=== PATIENT | female | born 1965 | race Caucasian/White ===

== ENCOUNTER → 2024-06-30 | Outpatient (CLI) | payer BC, SELFPAY ==
[2024-06-30 11:06] LABS: Collection Type, Urine Clean Catch
[2024-06-30 11:35] LABS: Basophils # (Auto) 0.1 Thou/mm3 (0.0-0.2); Basophils % (Auto) 1 % (0-2.5); Eosinophils # (Auto) 0.1 Thou/mm3 (0.0-0.5); Eosinophils % (Auto) 2 % (0-10); Hematocrit 41.6 % (36.0-46.0); Hemoglobin 13.4 g/dL (12.0-16.0); Immature Granulocytes % (Auto) 0 % (0-0); Immature Granulocytes Auto 0.02 Thou/mm3 (0.00-0.00); Lymphocytes # (Auto) 3.5 Thou/mm3 (1.0-4.8); Lymphocytes % (Auto) 48 % (10-50); Mean Corpuscular HGB Conc 32.2 g/dl (31.0-37.0); Mean Corpuscular Hemoglobin 28.8 pg (25.0-35.0); Mean Corpuscular Volume 90 fL (80-100); Monocytes # (Auto) 0.6 Thou/mm3 (0.0-0.8); Monocytes % (Auto) 8 % (0-12); Neutrophils % (Auto) 41 % (37-80); Nucleated Red Blood Cell % 0 /100 WBC (0); Platelet Count 255 Thou/mm3 (140-440); RDW Standard Deviation 45.3 fL (36.4-46.3); Red Blood Count 4.65 Miln/mm3 (4.00-5.20); White Blood Count 7.3 Thou/mm3 (3.6-11.0)
[2024-06-30 11:42] LABS: Bilirubin,Urine Negative (Negative); Blood,Urine Negative (Negative); Clarity,Urine Clear (Clear/Hazy); Color,Urine Colorless (Lt Yel-Yel); Culture Indicated,Urine Not Indicated; Glucose, Urine Negative (Negative); Ketones,Urine Negative (Negative); Leukocyte Esterase,Urine Negative (Negative); Nitrite,Urine Negative (Negative); Protein,Urine Negative (Neg - Trace); RBC,Urine 1 /hpf (0-3); Squamous Epithelial Cell,Urine < 1 /hpf (0-5); Urobilinogen,Urine Negative mg/dL (0.0-1.0); WBC,Urine < 1 /hpf (0-5)
[2024-06-30 11:55] LABS: Creatinine MALB Rnd Ur 33 mg/dL (30-125); Microalbumin, Random Urine < 3 mg/L (0-300)
[2024-06-30 12:23] LABS: Alanine Aminotransferase 39 U/L (10-49); Albumin, Serum 4.7 gm/dL (3.4-4.8); Albumin/Globulin Ratio 2.2 (1.2-2.2); Alkaline Phosphatase 87 U/L (46-116); Anion Gap 9 (7-16); Aspartate Amino Transferase 32 U/L (0-34); BUN/Creatinine Ratio 19 Ratio (12-20); Bilirubin,Total 0.5 mg/dL (0.3-1.2); Blood Urea Nitrogen 13 mg/dL (9-23); Calcium 9.9 mg/dL (8.3-10.6); Calcium (Corrected) 9.9 mg/dL (8.5-10.1); Chloride 107 mMol/L (98-107); Creatinine (Component) 0.7 mg/dL (0.6-1.3); Globulin 2.1 gm/dL (2.3-3.5); Glucose 129 mg/dL (74-106); Osmolality,Calculated 290 (275-295); Potassium 4.4 mMol/L (3.4-5.1); Sodium 145 mMol/L (136-145); Thyroid Stimulating Hormone 1.03 uIU/mL (0.55-4.78); Total Protein 6.8 gm/dL (5.7-8.2); eGFR > 60 See Note
[2024-06-30 13:43] LABS: Cardiac Risk Estimate 3.2 RATIO (3.7-5.6); Cholesterol 137 mg/dL (132-200); HDL Cholesterol 43 mg/dL (40-60); LDL Cholesterol,Calculated 61 mg/dL (0-130); Triglycerides 165 mg/dL (30-150)
[2024-06-30 13:45] LABS: Glucose Estimated Average 174 mg/dL (80-131); Hemoglobin A1C 7.7 % Hgb (4.8-6.0)
[2024-06-30 14:03] LABS: Vitamin D 25 Hydroxy Total 57.5 ng/mL (7.3-40.2)
== END | disposition home or self-care (01) ==
LOC: COPL 10:29
PROVIDERS: PCP Family Medicine; Referring Provider Registered Nurse; Visit Provider Registered Nurse
DX: Z00.00 Encounter for general adult medical examination without abnormal findings (principal); E11.65 Type 2 diabetes mellitus with hyperglycemia; I10 Essential (primary) hypertension; E78.5 Hyperlipidemia, unspecified
CPT/HCPCS: 36415; 80053; 80061; 81001; 82043; 82306; 82570; 83036; 84443; 85025

== ENCOUNTER → 2024-09-22 | Outpatient (CLI) | payer BC, SELFPAY ==
[2024-09-22 11:16] LABS: Collection Type, Urine Clean Catch
[2024-09-22 11:44] LABS: Basophils # (Auto) 0.1 Thou/mm3 (0.0-0.2); Basophils % (Auto) 1 % (0-2.5); Immature Granulocytes % (Auto) 0 % (0-0); Immature Granulocytes Auto 0.03 Thou/mm3 (0.00-0.00); Nucleated Red Blood Cell % 0 /100 WBC (0); Red Blood Count 4.73 Miln/mm3 (4.00-5.20)
[2024-09-22 11:49] LABS: Eosinophils # (Auto) 0.1 Thou/mm3 (0.0-0.5); Eosinophils % (Auto) 1 % (0-10); Hematocrit 41.6 % (36.0-46.0); Hemoglobin 13.7 g/dL (12.0-16.0); Lymphocytes # (Auto) 3.2 Thou/mm3 (1.0-4.8); Lymphocytes % (Auto) 36 % (10-50); Mean Corpuscular HGB Conc 32.9 g/dl (31.0-37.0); Mean Corpuscular Volume 88 fL (80-100); Monocytes # (Auto) 0.7 Thou/mm3 (0.0-0.8); Monocytes % (Auto) 8 % (0-12); Neutrophils # (Auto) 4.7 Thou/mm3 (1.8-7.7); Neutrophils % (Auto) 53 % (37-80); Platelet Count 307 Thou/mm3 (140-440); White Blood Count 8.8 Thou/mm3 (3.6-11.0)
[2024-09-22 11:57] LABS: Bilirubin,Urine Negative (Negative); Blood,Urine Negative (Negative); Clarity,Urine Clear (Clear/Hazy); Color,Urine Lt-Yellow (Lt Yel-Yel); Culture Indicated,Urine Not Indicated; Glucose, Urine 1+ (Negative); Ketones,Urine Negative (Negative); Leukocyte Esterase,Urine Negative (Negative); Nitrite,Urine Negative (Negative); PH,Urine 5.5 (5.0-7.0); Protein,Urine Negative (Neg - Trace); RBC,Urine 3 /hpf (0-3); Specific Gravity,Urine 1.018 (1.001-1.035); Squamous Epithelial Cell,Urine 6 /hpf (0-5); Urobilinogen,Urine Negative mg/dL (0.0-1.0); WBC,Urine 2 /hpf (0-5)
[2024-09-22 12:00] LABS: Creatinine MALB Rnd Ur 56 mg/dL (30-125); Microalbumin Creat Ratio 13 mg/gCrea (<30); Microalbumin, Random Urine 7 mg/L (0-300)
[2024-09-22 12:00] LABS: Vitamin D 25 Hydroxy Total 49.8 ng/mL (7.3-40.2)
[2024-09-22 12:03] LABS: Glucose Estimated Average 212 mg/dL (80-131)
[2024-09-22 12:05] LABS: Alanine Aminotransferase 44 U/L (10-49); Albumin, Serum 4.5 gm/dL (3.4-4.8); Albumin/Globulin Ratio 1.8 (1.2-2.2); Alkaline Phosphatase 100 U/L (46-116); Anion Gap 9 (7-16); Aspartate Amino Transferase 37 U/L (0-34); BUN/Creatinine Ratio 21 Ratio (12-20); Bilirubin,Total 0.6 mg/dL (0.3-1.2); Blood Urea Nitrogen 17 mg/dL (9-23); Calcium 9.4 mg/dL (8.3-10.6); Calcium (Corrected) 9.4 mg/dL (8.5-10.1); Cardiac Risk Estimate 3.5 RATIO (3.7-5.6); Chloride 106 mMol/L (98-107); Cholesterol 170 mg/dL (132-200); Creatinine (Component) 0.8 mg/dL (0.6-1.3); Globulin 2.5 gm/dL (2.3-3.5); Glucose 175 mg/dL (74-106); HDL Cholesterol 48 mg/dL (40-60); LDL Cholesterol,Calculated 93 mg/dL (0-130); Osmolality,Calculated 288 (275-295); Potassium 4.2 mMol/L (3.4-5.1); Sodium 142 mMol/L (136-145); Thyroid Stimulating Hormone 1.69 uIU/mL (0.55-4.78); Triglycerides 145 mg/dL (30-150); eGFR > 60 See Note
== END | disposition home or self-care (01) ==
LOC: COPL 10:34
PROVIDERS: PCP Family Medicine; Referring Provider Registered Nurse; Visit Provider Registered Nurse
DX: E11.65 Type 2 diabetes mellitus with hyperglycemia (principal); R79.89 Other specified abnormal findings of blood chemistry
CPT/HCPCS: 36415; 80053; 80061; 81001; 82043; 82306; 82570; 83036; 84443; 85025

== ENCOUNTER → 2024-10-30 | Outpatient (CLI) | payer BC, SELFPAY ==
[2024-10-30 12:18] LABS: Albumin, Serum 4.3 gm/dL (3.4-4.8); Anion Gap 11 (7-16); BUN/Creatinine Ratio 17 Ratio (12-20); Blood Urea Nitrogen 12 mg/dL (9-23); Calcium 8.8 mg/dL (8.3-10.6); Calcium (Corrected) 8.8 mg/dL (8.5-10.1); Carbon Dioxide 29.4 mMol/L (20.0-31.0); Chloride 106 mMol/L (98-107); Creatinine (Component) 0.7 mg/dL (0.6-1.3); Glucose 135 mg/dL (74-106); Osmolality,Calculated 292 (275-295); Phosphorous 3.3 mg/dL (2.4-5.1); Potassium 3.6 mMol/L (3.4-5.1); Sodium 146 mMol/L (136-145); eGFR > 60 See Note
== END | disposition home or self-care (01) ==
LOC: COPL 10:42
PROVIDERS: PCP Family Medicine; Referring Provider Registered Nurse; Visit Provider Registered Nurse
DX: R22.2 Localized swelling, mass and lump, trunk (principal)
CPT/HCPCS: 36415; 80069

== ENCOUNTER → 2024-11-09 | Outpatient (CLI) | payer BC, SELFPAY ==
--- NOTE | 2024-11-09 13:15 | XR_ITS ---
Examination: MRI abdomen with intravenous contrast TECHNIQUE: Multiple MR abdomen images obtained post intravenous administration 19 cc gadolinium Date and time: November 09, 2024 1336 hours INDICATIONS: Palpable mass right side of the mid back 3 years FINDINGS: No focal enhancing liver or splenic lesion No pancreatic mass or extrahepatic biliary tract dilatation No renal mass lesion or hydronephrosis Aorta normal size No ascites Possible very subtle ill-defined enhancement at the palpable marker site but no discrete mass IMPRESSION: Recommend ultrasound soft tissue extremity palpable mass in the posterior right back follow-up
== END | disposition home or self-care (01) ==
LOC: SMRI 12:42
PROVIDERS: PCP Family Medicine; Referring Provider Registered Nurse; Visit Provider Registered Nurse
DX: R22.2 Localized swelling, mass and lump, trunk (principal)
CPT/HCPCS: 74182; A9579

== ENCOUNTER → 2025-01-05 | Outpatient (CLI) | payer BC, SELFPAY ==
[2025-01-05 12:01] LABS: Basophils # (Auto) 0.1 Thou/mm3 (0.0-0.2); Basophils % (Auto) 1 % (0-2.5); Eosinophils # (Auto) 0.2 Thou/mm3 (0.0-0.5); Eosinophils % (Auto) 4 % (0-10); Hematocrit 38.7 % (36.0-46.0); Hemoglobin 12.2 g/dL (12.0-16.0); Immature Granulocytes Auto 0.01 Thou/mm3 (0.00-0.00); Lymphocytes # (Auto) 2.6 Thou/mm3 (1.0-4.8); Lymphocytes % (Auto) 44 % (10-50); Mean Corpuscular HGB Conc 31.5 g/dl (31.0-37.0); Mean Corpuscular Hemoglobin 28.0 pg (25.0-35.0); Mean Corpuscular Volume 89 fL (80-100); Monocytes # (Auto) 0.5 Thou/mm3 (0.0-0.8); Monocytes % (Auto) 9 % (0-12); Neutrophils # (Auto) 2.6 Thou/mm3 (1.8-7.7); Neutrophils % (Auto) 43 % (37-80); Nucleated Red Blood Cell # 0.00 Thou/mm3 (0.00-0.00); Nucleated Red Blood Cell % 0 /100 WBC (0); Platelet Count 239 Thou/mm3 (140-440); RDW Standard Deviation 47.9 fL (36.4-46.3); Red Blood Count 4.36 Miln/mm3 (4.00-5.20); White Blood Count 6.0 Thou/mm3 (3.6-11.0)
[2025-01-05 12:12] LABS: Glucose Estimated Average 240 mg/dL (80-131); Hemoglobin A1C 10.0 % Hgb (4.8-6.0)
[2025-01-05 12:14] LABS: Alanine Aminotransferase 63 U/L (10-49); Albumin, Serum 4.3 gm/dL (3.4-4.8); Albumin/Globulin Ratio 2.2 (1.2-2.2); Alkaline Phosphatase 77 U/L (46-116); Anion Gap 12 (7-16); Aspartate Amino Transferase 72 U/L (0-34); BUN/Creatinine Ratio 14 Ratio (12-20); Bilirubin,Total 0.5 mg/dL (0.3-1.2); Blood Urea Nitrogen 10 mg/dL (9-23); Calcium 9.1 mg/dL (8.3-10.6); Calcium (Corrected) 9.1 mg/dL (8.5-10.1); Carbon Dioxide 25.8 mMol/L (20.0-31.0); Chloride 105 mMol/L (98-107); Creatinine (Component) 0.7 mg/dL (0.6-1.3); Globulin 2.0 gm/dL (2.3-3.5); Glucose 212 mg/dL (74-106); Osmolality,Calculated 289 (275-295); Potassium 3.4 mMol/L (3.4-5.1); Sodium 143 mMol/L (136-145); Total Protein 6.3 gm/dL (5.7-8.2); eGFR > 60 See Note
[2025-01-05 12:16] LABS: Iron 45 mcg/dL (50-170); Percent Iron Saturation 12 % (20-55); Total Iron Binding Capacity 372 mcg/dL (250-425); Unsaturated Iron Binding 327 (225-295)
[2025-01-05 13:37] LABS: Cocci Serology, IgM Negative (Negative)
[2025-01-06 14:44] LABS: Cocci Serology, IgG Negative (Negative)
== END | disposition home or self-care (01) ==
LOC: COPL 10:58
PROVIDERS: PCP Family Medicine; Referring Provider Registered Nurse; Visit Provider Registered Nurse
DX: E11.65 Type 2 diabetes mellitus with hyperglycemia (principal); R05.2 Subacute cough
CPT/HCPCS: 36415; 80053; 83036; 83540; 83550; 85025; 86331; 86635

== ENCOUNTER → 2025-03-30 | Outpatient (CLI) | payer BC, SELFPAY ==
[2025-03-30 12:32] LABS: Glucose Estimated Average 183 mg/dL (80-131); Hemoglobin A1C 8.0 % Hgb (4.8-6.0)
[2025-03-30 12:45] LABS: Alanine Aminotransferase 44 U/L (10-49); Albumin, Serum 4.7 gm/dL (3.4-4.8); Albumin/Globulin Ratio 2.6 (1.2-2.2); Alkaline Phosphatase 76 U/L (46-116); Anion Gap 12 (7-16); Aspartate Amino Transferase 35 U/L (0-34); BUN/Creatinine Ratio 14 Ratio (12-20); Bilirubin,Total 0.4 mg/dL (0.3-1.2); Blood Urea Nitrogen 10 mg/dL (9-23); Calcium 9.5 mg/dL (8.3-10.6); Calcium (Corrected) 9.5 mg/dL (8.5-10.1); Carbon Dioxide 26.9 mMol/L (20.0-31.0); Chloride 105 mMol/L (98-107); Creatinine (Component) 0.7 mg/dL (0.6-1.3); Globulin 1.8 gm/dL (2.3-3.5); Glucose 128 mg/dL (74-106); Osmolality,Calculated 287 (275-295); Potassium 3.6 mMol/L (3.4-5.1); Sodium 144 mMol/L (136-145); Total Protein 6.5 gm/dL (5.7-8.2); eGFR > 60 See Note
== END | disposition home or self-care (01) ==
LOC: COPL 10:30
PROVIDERS: PCP Family Medicine; Referring Provider Registered Nurse; Visit Provider Registered Nurse
DX: E11.65 Type 2 diabetes mellitus with hyperglycemia (principal)
CPT/HCPCS: 36415; 80053; 83036